=== PATIENT | female | born 1985 | race Caucasian/White ===

== ENCOUNTER 2019-05-19 13:17 | Emergency (ER) | payer MEDICAID ==
[~2019-05-19] VITALS: Ht 154.9 cm; Wt 62.1 kg
[~2019-05-19 13:17] MED LIST: ALPR-624 PO; PHEN-716 PO
[2019-05-19 13:25] VITALS: BP 137/88
[2019-05-19 14:22] LABS: CLARITY,URINE SLIGHTLY CLOUDY (Clear); COLOR,URINE ORANGE (Yellow); UA COLLECTION TYPE CLN CATCH MIDSTREAM
[2019-05-19 14:24] LABS: URINE HCG NEGATIVE (NEG)
[2019-05-19 14:37] LABS: MUCUS STRANDS FEW /LPF (Neg); SQUAMOUS EPITHELIAL CELL,UR FEW /LPF (FEW)
[2019-05-19 14:39] LABS: BACTERIA,URINE 1+ /HPF (Neg); RBC,URINE NONE SEEN /HPF (0-2)
[2019-05-19] MEDS ORDERED: CEPH250T PO (15:26)
== END 2019-05-19 16:12 | disposition home or self-care (01) ==
LOC: ER 13:19
DX: N39.0 Urinary tract infection, site not specified (principal); Z98.890 Other specified postprocedural states; Z88.0 Allergy status to penicillin; Z88.2 Allergy status to sulfonamides; Z79.899 Other long term (current) drug therapy
CPT/HCPCS: 81001; 81025; 87088; 99283

== ENCOUNTER 2019-06-08 19:31 | Emergency (ER) | payer MEDICAID ==
[~2019-06-08] VITALS: Ht 157.5 cm; Wt 61.8 kg
[2019-06-08 20:22] LABS: CLARITY,URINE CLEAR (Clear); COLOR,URINE YELLOW (Yellow); GLUCOSE, URINE NEGATIVE (Neg); KETONES,URINE NEGATIVE (Neg); LEUKOCYTE ESTERASE ,URINE NEGATIVE (Neg); NITRITES, URINE NEGATIVE (Neg); OCCULT BLOOD,URINE NEGATIVE (Neg); PROTEIN,URINE NEGATIVE (Neg); UROBILINOGEN,URINE 0.2 E.U/dL (0.2-1.0)
--- NOTE | 2019-06-08 20:23 | NUR ---
Urine was collected in the lobby and results are pending. Lab work has been collected as well but not resulted yet.
[2019-06-08 20:30] LABS: UA COLLECTION TYPE CLN CATCH MIDSTREAM
[2019-06-08 20:58] LABS: HCG SERUM QL POSITIVE
[2019-06-08 22:01] VITALS: BP 126/70
== END 2019-06-08 22:03 | disposition home or self-care (01) ==
LOC: ER 19:31
DX: O20.0 Threatened abortion (principal); Z3A.01 Less than 8 weeks gestation of pregnancy; Z98.890 Other specified postprocedural states; Z88.0 Allergy status to penicillin; Z88.2 Allergy status to sulfonamides; Z79.899 Other long term (current) drug therapy
CPT/HCPCS: 36415; 81003; 84702; 84703; 99284

== ENCOUNTER 2021-12-12 22:53 | Emergency (ER) | payer BC, MEDICAID ==
[~2021-12-12] VITALS: Ht 157.5 cm; Wt 68.2 kg
[2021-12-12 23:07] VITALS: BP 137/94
== END 2021-12-13 00:32 | disposition left against medical advice (07) ==
LOC: ER 22:54
DX: F41.9 Anxiety disorder, unspecified (principal); Z53.21 Procedure and treatment not carried out due to patient leaving prior to being seen by health care provider

== ENCOUNTER 2022-03-31 00:46 | Emergency (ER) | payer MEDICAID ==
[~2022-03-31] VITALS: Ht 160 cm; Wt 68.2 kg
[2022-03-31] MEDS ORDERED: PANT40TA54 PO (02:09)
[2022-03-31] MEDS ORDERED: ketorolac tromethamine 15mg/ml inj. IM ONE (03:05)
[2022-03-31 03:30] VITALS: BP 121/81
== END 2022-03-31 03:34 | disposition home or self-care (01) ==
LOC: ER 00:46
DX: M25.511 Pain in right shoulder (principal); Z88.0 Allergy status to penicillin; Z88.1 Allergy status to other antibiotic agents; Z88.2 Allergy status to sulfonamides; Z56.0 Unemployment, unspecified
CPT/HCPCS: 96372; 99283; J1885; A4565

== ENCOUNTER 2022-05-05 17:10 | Emergency (ER) | payer MEDICAID ==
[~2022-05-05] VITALS: Ht 157.5 cm; Wt 63.6 kg
[~2022-05-05 17:10] MED LIST changes: -ALPR-624 PO; +PANT40TA54 PO; -PHEN-716 PO
[2022-05-05 17:36] VITALS: BP 138/92
[2022-05-05] MEDS ORDERED: acetaminophen 325mg tablet PO ONE (19:20)
[2022-05-05 19:58] LABS: BASOPHILS # (AUTO) 0.1 X10'3 (0-0.2); BASOPHILS % (AUTO) 1.4 % (0-1); EOSINOPHILS # (AUTO) 0.4 X10'3 (0-0.9); EOSINOPHILS % (AUTO) 4.2 % (0-6); HEMATOCRIT 38.6 % (35.0-45.0); HEMOGLOBIN 13.2 g/dl (12.0-16.0); LYMPHOCYTES # (AUTO) 1.3 X10'3 (1.1-4.8); MEAN CORPUSCULAR HEMOGLOBIN 31.3 PG (27.0-31.0); MEAN CORPUSCULAR HGB CONC 34.1 g/dL (33.0-36.5); MEAN CORPUSCULAR VOLUME 91.7 FL (78-98); MEAN PLATELET VOLUME 8.3 FL (7.4-10.4); MONOCYTES # (AUTO) 0.5 X10'3 (0-0.9); MONOCYTES % (AUTO) 5.5 % (2-12); NEUTROPHILS # (AUTO) 6.2 X10'3 (1.8-7.7); NEUTROPHILS % (AUTO) 73.9 % (42-75); PLATELET COUNT 349 X10'3 (140-440); RED BLOOD COUNT 4.21 X10'6 (4.20-5.60); RED CELL DISTRIBUTION WIDTH 13.1 % (11.5-14.5); WHITE BLOOD COUNT 8.4 X10'3 (4.5-11.0)
[2022-05-05] MEDS ORDERED: BENZ-38 PO (20:42)
== END 2022-05-05 21:04 | disposition home or self-care (01) ==
LOC: ER 17:10
DX: J06.9 Acute upper respiratory infection, unspecified (principal); Z88.0 Allergy status to penicillin; Z88.1 Allergy status to other antibiotic agents; Z88.8 Allergy status to other drugs, medicaments and biological substances
CPT/HCPCS: 36415; 85025; 87081; 87502; 87503; 87880; 99283